=== PATIENT | male | born 1990 | race Caucasian/White ===

== ENCOUNTER 2024-09-20 11:42 | Emergency (ER) | payer MEDICAID, SELFPAY ==
--- NOTE | ~2024-09-20 | XR_ITS ---
EXAMINATION: XR HAND/WRIST, RIGHT CLINICAL INFORMATION: fall COMPARISON: None available. TECHNIQUE: PA, lateral, oblique, and scaphoid views of the right hand and wrist. FINDINGS: No fracture, dislocation, or suspicious bone lesion. Normal bone mineralization. Normal alignment. Joint spaces are preserved. No significant arthropathy. No significant joint effusion. Soft tissues appear normal. XR/XR hand wrist RT IMPRESSION: Normal radiographs of the hand and wrist. Electronically signed by: Cody Pompa MD 09/20/2024 01:05 PM MEENA MALLOY
[2024-09-20 12:16] VITALS: BP 119/59; PULSE 98; RESP 20; TEMP 36.8; O2SAT 97; BMI 20.1
--- OUTSIDE RECORDS SUMMARY | 2024-09-20 17:23 | XMS_ITS ---
Author Organization 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 akathisia Drug Allergy Active olanzapine OLANZapine restlessness, ? akathisia Drug Allergy Active REASON FOR VISIT office visit: lab draw Medications Medication SIG (Take, Route, Frequency, Duration) Notes Start Date End Date Status Mavyret 100 mg-40 mg 3 tab(s) orally onc e a day for 56 days Please deliver to [facility] Not-Taking gabapentin 100 mg 1 cap(s) orally 3 times a day for 30 days Active levothyroxine 175 mcg (0.175 mg) 1 tab(s) orally once a day for 30 days Active mirtazapine 15 mg 1 tab(s) orally once a day (at bedtime) for 30 days 04/20/2024 Active Suboxone 8 mg-2 mg 2 film(s) sublingually once a day Active ProAir HFA 90 mcg/inh 2 puff(s) inhaled every 6 hours for 30 days As needed Active Ventolin HFA 90 mcg/inh 2 puff(s) inhaled every 6 hours as needed for shortness of breath for 30 days Not-Taking fexofenadine 180 mg 1 tab(s) orally hs prn for allergy for 90 days Not-Taking Daily Darryn Multiple Vitamins 1 tab(s) orally once a day for 90 days LF 02/10/22,0RF Active Vitamin D3 1000 intl units 1 cap(s) orally once a day for 90 days LF 02/10/22,0RF Active Vitamin B1 100 mg 1 tab(s) orally once a day LF 02/10/22,0RF Not-Taking folic acid 1 mg 1 tab(s) orally once a day LF 02/10/22,0RF Not-Taking Incruse Ellipta 62.5 mcg (0.0625 mg)/inh 1 INH inhaled every 24 hours Not-Taking omeprazole 20 mg 1 cap(s) orally once a day for 90 days Not-Taking Nicoderm C-Q Clear 21 mg/24 hr 1 PATCH transdermally once a day Not-Taking ferrous sulfate 325 mg 1 tab(s) orally once a day Not-Taking Social History Tobacco Use: Social History Observation Description Date Details (start date - stop date) Current Smoker NA - NA Sex Assigned At : Social History Observation Description Sex Assigned At Male Tobacco Use Assessment MU Question Answer Notes What is your current smoking status? current smo ker How often do you smoke? every day How many cigarettes a day do you smoke? 5 or les s How soon after you wake up do you smoke your fir st cigarette? 6-30 minutes Are you interested in quitting? not ready to hieu t Vital Signs Height 73 in 09/07/2024 Encounters Encounter Location Date Provider Diagnosis [address] [phone] 09/07/2024 Nursing [facility] Encounter for screening, unspecified Z13.9 Assessments Encounter Date Diagnosis (ICD Code) Assessment Notes Treatment Notes Treatment Clinical Notes 09/07/2024 Encounter for screening, unspecified (ICD-10 - Z13.9) Lab work drawn as ordered, per protocol using aseptic technique. Client will be notified of all lab values within two weeks, Client agrees with plan, allowed to clarify questions about plan. Message sent to provider for levothyroxine refill request Plan Of Treatment Treatment Notes Assessment Notes Encounter for screening, unspecified Lab work drawn as ordered, per protocol using aseptic technique. Client will be notified of all lab values within two weeks, Client agrees with plan, allowed to clarify questions about plan. Message sent to provider for levothyroxine refill request Next Appt Details Follow Up: prn, Reason: Provider Name:Bernadette delarosa, 09/21/2024 01:30:00 PM, [address] [place] [address], [phone], Provider Name:Christina Garcia, 09/21/2024 02:30:00 PM, [address], [place], [phone], Progress Notes * Good WOOD GDOB: 9 (33 yo M)Acc No.[id number]:09/07/2024 Progress Notes Patient:?Good WOOD Provider:?Provider [facility] :1990???Age:33 Y???Sex:Male Kevin e:09/07/2024 Address:[address] [place] [address], [address] [place], [place] [id number] Pcp:Bernadette Valentine Subjective: * Chief Complaints: * ???1. Office visit: lab draw . * HPI: ???General:?ES Pt presenting to clinic for lab draw. Requesting refill of levothyroxine. * ROS:?GENERAL:?Constitutional?denies,?fevers, chills, Pt is able to walk 1 flight of stairs without stopping.?Respiratory?denies,?shortness of breath, wheezing.?Cardiovascular?denies,?chest pain/pressure, syncope.? * Medical History:?PTSD, anxie ty, panic attacks, Schizophrenia, Fibromyalgia, Hx thyroid cancer, thyroid removed 2008, Hx IV cocaine use, Tobacco use, Homelessness, Hx psychosis [facility] 01/14/22, Unspecified mood [affective] disorder(w/u negative). * Surgical History:?thyroid ca ncer-thyroid removed 2008. * Hospitalization/Major Diagno stic Procedure:?hospitalized 3x in past 6 months- delusional, really sick -[facility] 2021, [facility] x 2 weeks acute toxic encephalopathy 12/2022. * Social History:?Housing/brian ng arrangements: 09/01/2023-low income [facility],[id number] [facility], [place]03/18/22, Arrived at [facility] 7 months ago-had lived in [facility]. [facility] Screening?Entered Date?09/01/2023,?How is this screening being conducted today??In-person,?What is your housing situation today??I have housing,?Think about the place you live. Do you have problems with any of the following? (Check all that apply)?None of the above,?Within the past 12 months, you worried that your food would run out before you got money to buy more?Never true,?Within the past 12 months, the food you bought just didn't last and you didn't have enough money to get more?Never true,?In the past 12 months, has lack of transportation kept you from medical appointments, meetings, work or from getting things needed for daily living? (Check all that apply)?No, I am not sure,?In the past 12 months has the [employer], gas, oil, or water [employer] threatened to shut off services in your home??No,?Do you want help finding or keeping work or a job??I do not need or want help. Tobacco Use Assessment MU?Annual Tobacco assessment completed?09/01/2023 smoker,?Tobacco assessment completed?09/01/2023,?What age did you start smoking??16,?What is your current smoking status??current smoker,?How often do you smoke??every day, How many cigarettes a day do you smoke??5 or less,?How soon after you wake up do you smoke your first cigarette??6-30 minutes,?Are you interested in quitting??not ready to quit.?Drug use?Date of history:?09/01/2023 On Suboxone,?Age of very first drug use?16,?Drug used?Cocaine injected,?Last use or first drug?-2022,?Have you ever overdosed on an opiate??No,?Currently using Medication Assisted Recovery?03/18/2022 Buprenorphine/cleanslate.?Opiate Use Hx?Ever taken opiates?No 09/01/2023.?Alcohol Use: 09/01/2023-denies10/2022 Denies03/18/22 denies. Sexual Orientation?Heterosexual 09/01/2023.?Sexual Health history?Sexual History completed on:?09/01/2023,?Number of sexual partners in the last year?0,?Offered STI testing today?09/01/2023 declines.?Mental Health: 09/01/2023- [facility]; (therapist Colin)03/18/22 , Reports MH issues but not in tx now, looking to engage-just discharged from [facility]. PTSD, anxiety, panic attacks and schizophrenia.. School?Last grade completed?11.?Income: 03/18/22, SSI. PCP/last visit: 03/18/22, Has not received PCP care in several years. Transportation: 03/18/22, Pt is able to walk most places. * Medications:?Taking ProAir H FA 90 mcg/inh aerosol 2 puff(s) inhaled every 6 hours As needed, Taking Vitamin D3 1000 intl units capsule 1 cap(s) orally once a day , Notes to Pharmacist: 02/10/22,0RF, Taking Daily Darryn Multiple Vitamins tablet 1 tab(s) orally once a day , Notes to Pharmacist: 02/10/22,0RF, Taking Suboxone 8 mg-2 mg film 2 film(s) sublingually once a day , Taking mirtazapine 15 mg tablet 1 tab(s) orally once a day (at bedtime) , Taking levothyroxine 175 mcg (0.175 mg) tablet 1 tab(s) orally once a day , Taking gabapentin 100 mg capsule 1 cap(s) orally 3 times a day , Not-Taking/PRN Mavyret 100 mg-40 mg tablet 3 tab(s) orally once a day , Notes to Pharmacist: Please deliver to [facility], Not- Taking/PRN ferrous sulfate 325 mg delayed release tablet 1 tab(s) orally once a day , Not-Taking/PRN folic acid 1 mg tablet 1 tab(s) orally once a day , Notes to Pharmacist: 02/10/22,0RF, Not-Taking/PRN Vitamin B1 100 mg tablet 1 tab(s) orally once a day , Notes to Pharmacist: 02/10/22,0RF, Not-Taking/PRN Nicoderm C-Q Clear 21 mg/24 hr film, extended release 1 PATCH transdermally once a day , Not- Taking/PRN omeprazole 20 mg delayed release capsule 1 cap(s) orally once a day , Not- Taking/PRN Incruse Ellipta 62.5 mcg (0.0625 mg)/inh powder 1 INH inhaled every 24 hours , Not-Taking/PRN fexofenadine 180 mg tablet 1 tab(s) orally hs prn for allergy , Not-Taking/PRN Ventolin HFA 90 mcg/inh aerosol 2 puff(s) inhaled every 6 hours as needed for shortness of breath * Allergies:?OLANZapine: restl essness, ? akathisia - Side Effects, Paxil: restlessness, ? akathisia. Objective: * Vitals:?Ht: 73. Assessment: * Assessment: 1.?Encounter for screening, unspecified - Z13.9??? Plan: * Treatment: * Procedure Codes:?62684 VENIP UNCT, ROUTINE*, 64707 SPECIMEN HANDLING * Follow Up:?prn * Images: Billing Information: * Visit Code:? * Procedure Codes:? 57589 VENIPUNCT, ROUTINE*. 63624 SPECIMEN HANDLING. * Sign off status: Completed true * Provider:?Provider [facility] Date:?09/07/2024 Generated for Silvestre padron/Felicitas/Gifty on:?09/20/2024 05:23 PM EST
--- OUTSIDE RECORDS SUMMARY | 2024-09-20 17:23 | XMS_ITS ---
Author Organization [facility] Address [address] [place] [phone] Care Team Providers Care Phlebotomy Tech Name Role Phone Bernadette Valentine Primary Care Provider REASON FOR VISIT levothyroxine rf Social History Sex Assigned At : Social History Observation Description Sex Assigned At Male Encounters Encounter Location Date Provider Diagnosis [address] [phone] 09/08/2024 Bernadette Valentine Plan Of Treatment Next Appt Details Provider Name:Bernadette delarosa, 09/21/2024 01:30:00 PM, [address] [place] [address], [phone], Provider Name:Christina Garcia, 09/21/2024 02:30:00 PM, [address] [place] [address], [phone], Progress Notes * Good WOOD GDOB: [birth year] (33 yo M)Acc No.[id number]:09/08/2024 Patient:?ISRAEL Good Sherin :1990???Age:33 Y???Sex:Male Address:[address] [place] [address], [address], [place] [address] * true * Date:? Generated for Printi ng/Faxing/eTransmitting on:?09/20/2024 05:23 PM EST
--- OUTSIDE RECORDS SUMMARY | 2024-09-20 17:23 | XMS_ITS ---
Author Organization [facility] Address [address] [place] [phone] Care Team Providers Care Handling Tech Name Role Phone Bernadette Valentine Primary Care Provider REASON FOR VISIT refill Medications Medication SIG (Take, Route, Frequency, Duration) Notes Start Date End Date Status levothyroxine 175 mcg (0.175 mg) 1 tab(s) orally once a day Active Social History Sex Assigned At : Social History Observation Description Sex Assigned At Male Encounters Encounter Location Date Provider Diagnosis [address] [phone] 09/07/2024 Bernadette Valentine Postprocedural hypothyroidism E89.0 Assessments Encounter Date Diagnosis (ICD Code) Assessment Notes Treat ment Notes Treatment Clinical Notes 09/07/2024 Postprocedural hypothyroidism (ICD-10 - E89.0) Plan Of Treatment Medication Medication Name Sig Start Date Stop Date Notes levothyroxine 175 mcg (0.175 mg) 1 tab(s ) orally once a day Next Appt Details Provider Name:Bernadette delarosa, 09/21/2024 01:30:00 PM, [address] [place] [address], [phone], Provider Name:Christina Garcia, 09/21/2024 02:30:00 PM, [address] [place] [address], [phone], Progress Notes * Good WOOD GDOB: [birth year] (33 yo M)Acc No.[id number]:09/07/2024 Patient:?Good WOOD :1990???Age:33 Y???Sex:Male Address:[address] [place] [address], , [place] [address] * Refills? Continue levothyroxine tablet, 175 mcg (0.175 mg), orally, 1 tab(s), once a day * true * Date:? Generated for Silvestre padron/Felicitas/Anaitting on:?09/20/2024 05:23 PM EST
== END 2024-09-20 17:59 | disposition left against medical advice (07) ==
PROVIDERS: Emergency Provider Emergency Medicine
DX: M79.641 Pain in right hand (principal); M25.531 Pain in right wrist
CPT/HCPCS: 73110; 73130; 99281

== ENCOUNTER → 2024-09-20 12:20 | Outpatient (BNV) | payer MEDICAID, SELFPAY | PROVIDERS: Visit Provider Radiology Diagnostic Radiology | DX: M79.641 Pain in right hand (principal); M25.531 Pain in right wrist | CPT/HCPCS: 73110; 73130 ==